=== PATIENT | female | born 1980 | race Caucasian/White ===

== ENCOUNTER → 2016-12-09 | Outpatient (CLI) | payer OTHER ==
[~2016-12-09] MED LIST: B-COMPLEX PLUS1 EACH PO; CLONAZEPAM 1 MG1 M1 PO; HYDROCODON-ACE1 EAC5 PO; LORTAB 10-3251 EACH PO; NAPROSYN500 MG PO; OXYCONTIN30 MG PO; VITAMIN D-32000 UNIT PO; WELLBUTRIN SR150 MG PO
== END ==
LOC: RAD 05:26
DX: N63 Unspecified lump in breast (principal)

== ENCOUNTER → 2017-06-23 | Outpatient (CLI) | payer OTHER | LOC: ULTRA 08:20 | DX: N63.10 Unspecified lump in the right breast, unspecified quadrant (principal) ==

== ENCOUNTER → 2020-01-08 | Outpatient (CLI) | payer OTHER | LOC: BC 10:42 | PROVIDERS: ATTEND Obstetrics & Gynecology | DX: Z12.31 Encounter for screening mammogram for malignant neoplasm of breast (principal) ==